=== PATIENT | male | born 1975 | race Caucasian/White ===

== ENCOUNTER 2018-05-29 05:51 | Emergency (ER) | payer OTHER ==
[~2018-05-29] VITALS: Ht 180.3 cm; Wt 84.9 kg
[~2018-05-29 05:51] MED LIST: ALPR0.25 PO; CARI350T PO; OXYC-307 PO
[2018-05-29 05:53] VITALS: BP 147/85
== END 2018-05-29 08:12 | disposition home or self-care (01) ==
LOC: ED 07:13
DX: S62.663A Nondisplaced fracture of distal phalanx of left middle finger, initial encounter for closed fracture (principal); M20.012 Mallet finger of left finger(s); G89.29 Other chronic pain; W22.8XXA Striking against or struck by other objects, initial encounter; Y93.89 Activity, other specified; Y92.098 Other place in other non-institutional residence as the place of occurrence of the external cause; Y99.8 Other external cause status
CPT/HCPCS: 29130; 99284